=== PATIENT | female | born 1995 | race Caucasian/White ===

== ENCOUNTER 2017-11-16 23:17 | Outpatient (CLI) | payer OTHER ==
[2017-11-17] MEDS ORDERED: DEXTROSE 5%-LACTATED RINGERS 1,000 ML IV PRN (00:05)
[2017-11-17 00:32] LABS: APPEARANCE,URINE CLOUDY; BILIRUBIN,URINE NEGATIVE (NEGATIVE); COLOR,URINE AMBER; GLUCOSE, URINE NEGATIVE (NEGATIVE); KETONES,URINE 80 mg/dL (NEGATIVE); LEUKOCYTE ESTERASE,URINE LARGE (NEGATIVE); NITRITE,URINE NEGATIVE (NEGATIVE); PROTEIN,URINE 30 mg/dL (NEGATIVE); URINE SPECIFIC GRAVITY 1.024
[2017-11-17 00:39] LABS: URINE AMPHETAMINES SCREEN NEGATIVE; URINE BARBITURATES SCREEN NEGATIVE; URINE BENZODIAZEPINES SCREEN NEGATIVE; URINE COCAINE SCREEN NEGATIVE; URINE MARIJUANA (THC) SCREEN NEGATIVE; URINE METHADONE SCREEN NEGATIVE; URINE PHENCYCLIDINE SCREEN NEGATIVE
--- NOTE | 2017-11-17 01:24 | RADIOLOGY REPORT (SQ) ---
EXAM DESCRIPTION: Limited second trimester obstetrical ultrasound. CLINICAL HISTORY: 22 years Female, cervical length for contractions LMP 05/29/2017. COMPARISON: None. TECHNIQUE: Limited second trimester obstetrical ultrasound performed. FINDINGS/IMPRESSION: Single intrauterine . heart rate of 149 beats for minute. Cervical length of 3.8 cm and closed. No definite funneling identified. organ survey not performed. Continued obstetrical follow-up recommended.
== END 2017-11-17 02:54 | disposition home or self-care (01) ==
LOC: LC 23:17
PROVIDERS: ATTEND Obstetrics & Gynecology Gynecology
PROC: 4A1HXCZ Monitoring of Products of Conception, Cardiac Rate, External Approach (ICD-10-PCS; principal; 2017-11-16)
DX: O47.02 False labor before 37 completed weeks of gestation, second trimester (principal); Z3A.22 22 weeks gestation of pregnancy
CPT/HCPCS: 76815; 80307; 81001

== ENCOUNTER 2018-03-05 00:31 | Inpatient (IN) | payer OTHER ==
[2018-03-05] MEDS ORDERED: LIDOCAINE 1% INJ-PF (10 MG/ML) 30 ML SDV ONE ×2 (01:02→01:13)
[2018-03-05] MEDS ORDERED: PENICILLIN G-K 5 MILLION UNIT VIAL ONE ×3 (01:02→09:35)
[2018-03-05] MEDS ORDERED: OXYTOCIN 10 UNIT/ML VIAL ONE ×2 (01:02→01:13)
[2018-03-05] MEDS ORDERED: MISOPROSTOL 0.2 MG TABLET ONE ×2 (01:02→01:13)
[2018-03-05] MEDS ORDERED: OXYTOCIN/NORMAL SALINE 0 UNIT/0 ML RTUINJ ONE (01:02)
[2018-03-05 01:08] LABS: APPEARANCE,URINE SLIGHTLY-CLOUDY; BILIRUBIN,URINE NEGATIVE (NEGATIVE); COLOR,URINE YELLOW; GLUCOSE, URINE NEGATIVE (NEGATIVE); KETONES,URINE NEGATIVE (NEGATIVE); LEUKOCYTE ESTERASE,URINE NEGATIVE (NEGATIVE); NITRITE,URINE NEGATIVE (NEGATIVE); PROTEIN,URINE 30 mg/dL (NEGATIVE); URINE SPECIFIC GRAVITY 1.011; UROBILINOGEN,URINE NEGATIVE mg/dL (<2.0)
[2018-03-05] MEDS ORDERED: RINGERS SOLUTION,LACTATED 1,000 ML IV PRN (01:11)
[2018-03-05] MEDS ORDERED: RINGERS SOLUTION,LACTATED 1,000 ML IV ONE (01:11)
[2018-03-05] MEDS ORDERED: PENICILLIN G POTASSIUM 5,000,000 UNIT in DEXTROSE 5%-WATER 100 ML IV ONE (01:11)
[2018-03-05] MEDS ORDERED: OXYTOCIN/NORMAL SALINE 20 UNIT/1,000 ML RTUINJ ONE (01:13)
[2018-03-05 01:31] LABS: URINE AMPHETAMINES SCREEN NEGATIVE
[2018-03-05 01:38] LABS: URINE BARBITURATES SCREEN NEGATIVE; URINE BENZODIAZEPINES SCREEN NEGATIVE; URINE COCAINE SCREEN NEGATIVE; URINE MARIJUANA (THC) SCREEN NEGATIVE; URINE METHADONE SCREEN NEGATIVE; URINE PHENCYCLIDINE SCREEN NEGATIVE
[2018-03-05 01:42] LABS: ABSOLUTE BASOPHILS # (AUTO) 0.1 10^3/uL (0.0-0.2); ABSOLUTE EOSINOPHILS # (AUTO) 0.1 10^3/uL (0.0-0.6); ABSOLUTE LYMPHOCYTES (AUTO) 3.4 10^3/uL (0.5-4.7); ABSOLUTE MONOCYTES (AUTO) 0.8 10^3/uL (0.1-1.4); ABSOLUTE NEUT (AUTO) 8.2 10^3/uL (1.7-8.2); BASOPHILS % (AUTO) 0.9 % (0-2); EOSINOPHILS % (AUTO) 1.2 % (0-6); HEMATOCRIT 36.2 % (36.0-47.0); HEMOGLOBIN 12.5 g/dL (12.0-15.5); LYMPHOCYTES % (AUTO) 26.8 % (13-45); MEAN CORPUSCULAR HEMOGLOBIN 30.8 pg (27.0-33.4); MEAN CORPUSCULAR HGB CONC 34.6 g/dL (32.0-36.0); MEAN CORPUSCULAR VOLUME 89 fl (80-97); MONOCYTES % (AUTO) 6.6 % (3-13); PLATELET COUNT 164 10^3/uL (150-450); RED BLOOD COUNT 4.07 10^6/uL (3.72-5.28); RED CELL DISTRIBUTION WIDTH 13.1 % (11.5-14.0); SEGMENTED NEUTROPHILS % (AUTO) 64.5 % (42-78); TOTAL CELLS COUNTED % (AUTO) 100 %; WHITE BLOOD COUNT 12.7 10^3/uL (4.0-10.5)
[2018-03-05] MEDS ORDERED: EPHEDRINE SULFATE INJ 50 MG/1 ML AMPULE ONE (06:05)
[2018-03-05] MEDS ORDERED: FENTANYL/BUPIVACAINE/NS/PF 200 MCG/100 ML RTUINJ EPI ONE (06:06)
[2018-03-05] MEDS ORDERED: BUPIVACAINE HCL 0.5 % INJ/PF 30 ML SDV ONE (06:07)
--- NOTE | 2018-03-05 08:27 | L&D Progress Notes ---
PROGRESS NOTES Datetime Report Generated by CPN: 03/05/2018 08:15 PROGRESS NOTE Impression: Reassuring Heart Rate Plan: Continue Present Management Comment: Resting quietly, irreg uc's, Cat 1 strip, comfortable with epidural Discussed POC, consider Pitocin if contractions slow down Dr. Kendall on unit and aware of status VAGINAL EXAM Dilatation: 2 Effacement: 50 Station: -1 MEMBRANES Pooling: Positive Membranes: Ruptured FETUS A Monitoring: External US : 40.0 Presentation: Vertex SIGNATURE SIGNATURE: [id number] SIGNATURE: [id number] Assignment: Lee Kendall MD Signature: with User ID: [email or web address] : with User ID: [email or web address]
--- NOTE | 2018-03-05 08:27 | Admission Physical ---
Datetime Report Generated by CPN: 03/05/2018 04:12 CURRENT ADMISSION Chief Complaint: Uterine Contractions; Suspected Ruptured Membranes Indication for Induction: Not Applicable Admit Impression : Term, Intrauterine Admit Plan: Admit to Unit ALLERGIES Medication Allergies: Yes Medication Allergies: Sulfa (Sulfonamide Antibiotics) (03/05/2018) Latex: No Latex Allergies Food Allergies: no Environmental Allergies: no OBSTETRICAL HISTORY EDC: 03/05/2018 00:00 : 1 Para: 0 Term: 0 : 0 SAB: 0 IAB: 0 Ectopic: 0 Livin Cesareans: 0 VBACs: 0 Multiple Births: 0 Gestational Diabetes: No Rh Sensitization: No Incompetent Cervix: No NANCY: No Infertility: No ART Treatment: No Uterine Anomaly: No IUGR: No Hx Previous C/S: No Macrosomia: No Hx Loss/Stillborn: No PIH: No Hx : No Placenta Previa/Abruption: No Depression/PP Depression: No PTL/PROM: No Post Hemorrhage: No Current Procedures: Ultrasound Obstetrical History Comments: g1 - current SEE RECORDS Alcohol: No Marijuana : No Cocaine: No Other Illicit Drugs: No Cigarettes: Never Smoker. [id number] MEDICAL HISTORY Diabetes: No Blood Transfusion: No Pulmonary Disease (Asthma, TB): No Breast Disease: No Hypertension: No Emergency Telecommunications Dispatcher Surgery: No Heart Disease: No Hosp/Surgery: No Autoimmune Disorder: No Anesthetic Complications: No Kidney Disease: No Abnormal Pap Smear: No Neuro/Epilepsy: No Psychiatric Disorders: No Other Medical Diseases: No Hepatitis/Liver Disease: No Significant Family History: No Varicosities/Phlebitis: No Trauma/Violence : No Thyroid Dysfunction: No INFECTIOUS HISTORY Gonorrhea: No Genital Herpes: No Chlamydia: No Tuberculosis: No Syphilis: No Hepatitis: No HIV/AIDS Exposure: No Rash or Viral Illness: No HPV: No PHYSICAL EXAM General: Normal HEENT: Normal Neurologic: Normal Thyroid: Normal Heart: Normal Lungs: Normal Breast: Deferred Back: Normal Abdomen: Normal Genitourinary Exam: Normal Extremities: Normal DTRs: Normal Pelvic Type: Adequate Vital Signs: Reviewed VAGINAL EXAM Dilatation: 2 Effacement: 50 Station: -1 MEMBRANES Pooling: Positive Membranes: Ruptured FETUS A EGA: 40.0 Monitoring: External US FHR- Baseline: 120 Decelerations: None Presentation: Vertex Admit Comment: She will likely need pitocin. PLANS FOR LABOR AND DELIVERY Labor and Delivery: None Pain Management: Epidural Feeding Preference: Breast Benefit of Breast Feed Discussed: Yes Circumcision: Yes INFORMED CONSENT Signature: with User ID: [email or web address]
[2018-03-05] MEDS: PENICILLIN G POTASSIUM 2,500,000 UNIT in DEXTROSE 5%-WATER 50 ML IV SCH (09:45)
[2018-03-05] MEDS ORDERED: DIBUCAINE 1% OINTMENT 28 GM TP PRN (12:09)
[2018-03-05] MEDS ORDERED: PROMETHAZINE HCL INJ 25 MG/1 ML VIAL IV PRN (12:09)
[2018-03-05] MEDS ORDERED: ACETAMINOPHEN 650 MG SUPP.RECT PR PRN (12:09)
[2018-03-05] MEDS ORDERED: BENZOCAINE/MENTHOL AEROSOL SPRAY 56 ML TOP PRN (12:09)
[2018-03-05] MEDS ORDERED: ACETAMINOPHEN WITH CODEINE #3 TABLET PO PRN ×2 (12:09)
[2018-03-05] MEDS ORDERED: DIPHENHYDRAMINE HCL 25 MG CAPSULE PO PRN (12:09)
[2018-03-05] MEDS ORDERED: PROMETHAZINE HCL 25 MG SUPP.RECT PR PRN (12:09)
[2018-03-05] MEDS ORDERED: MAGNESIUM HYDROXIDE SUSP 30 ML UDCUP PO PRN (12:09)
[2018-03-05] MEDS ORDERED: GLYCERIN/WITCH HAZEL LEAF 1 EACH MED..PAD TP PRN (12:09)
[2018-03-05] MEDS ORDERED: NA PHOS,M-B/NA PHOS,DI-BA (ADULT) 133 ML ENEMA PR PRN (12:09)
[2018-03-05] MEDS ORDERED: DIPH/PERTUSS(ACELL)/TETANUS VAC/PF 0.5 ML SYR (>=10YO) IM PRN (12:09)
[2018-03-05] MEDS ORDERED: OXYTOCIN/NORMAL SALINE 20 UNIT/1,000 ML RTUINJ IV PRN (12:09)
[2018-03-05] MEDS ORDERED: MEASLES,MUMPS&RUBELLA VACC/PF 0.5 ML VIAL SUBCUT PRN (12:09)
[2018-03-05] MEDS ORDERED: PSEUDOEPHEDRINE HCL 30 MG TABLET PO PRN (12:09)
[2018-03-05] MEDS ORDERED: PROMETHAZINE HCL 25 MG TABLET PO PRN (12:09)
--- NOTE | 2018-03-05 16:04 | Delivery Summary ---
Del Sum A-C Datetime Report Generated by CPN: 03/05/2018 16:04 DELIVERY PERSONNEL DELIVERY PERSONNEL: [id number] Delivery Doctor:: Laya De Jesus CNM Nurse Life Skills Consultant Certified:: Laya De Jesus CNM Labor and Delivery Nurse:: LETICIA Alfonso Labor and Delivery Nurse:: Lisa Chavez RN Industrial Safety And Health Technician:: Lisa Chavez RN Nursery Nurse:: Cory Mireles RN Student Observers:: [email or web address] x3 Instructor Industrial Design/VERIFY REP: Deepthi Correa CNA II MATERNAL INFORMATION Delivery Anesthesia: Epidural Medications After Delivery: Pitocin Drip 20 Units/1000ml NSS Maternal Complications: None Provider Comments: viable male from OA to TRAY over ML epis and L and R labial laceration, placed on mothers abd, spont delivery of grossly nl intact placenta, 3 VC, cord clamped afte 2 minutes and cut by FOB. Epis repaired with 2-0 chromic without difficulty, labial and periurethral sutured. catheter placed to insure patency after suturing. FFFM. baby and mom remain in recovery in stable condition LABOR SUMMARY EDC: 03/05/2018 00:00 No. Babies in Womb: 1 Attempted: No Labor Anesthesia: Epidural LABOR INFORMATION Reason for Induction: Not Applicable Onset of Labor: 03/05/2018 05:54 Complete Dilatation: 03/05/2018 08:30 Oxytocin: Augmentation Group B Beta Strep: Positive Antibiotics # of Doses: 3 Antibiotics Time of Last Dose: 929 Name of Antibiotic Given: peniciilin Steroids Given: None Reason Steroids Not Administered: Not Applicable MEMBRANES Membranes Rupture Method: Spontaneous Rupture of Membranes: 03/04/2018 23:30 Length of Rupture (hr): 12.08 Amniotic Fluid Color: Clear Amniotic Fluid Amount: Large Amniotic Fluid Odor: Normal STAGES OF LABOR Stage 1 hr: 2 Stage 1 min: 36 Stage 2 hr: 3 Stage 2 min: 5 Stage 3 hr: 0 Stage 3 min: 2 Total Time in Labor hr: 5 Total Time in Labor min: 43 VAGINAL DELIVERY Episiotomy: Median Laceration #1: None Laceration Extension #1: First Degree Other Laceration: left and right labial Laceration Repair: Yes Laceration Repair Note: reapired with 2-0 chromic Sponge Count Correct: N/A BABY A INFORMATION Infant Delivery Date/Time: 03/05/2018 11:35 Method of Delivery: Vaginal Born in Route : No : N/A Forceps: N/A Vacuum Extraction: N/A Shoulder Dystocia : No PRESENTATION/POSITION BABY A Presentation: Cephalic Cephalic Presentation: Vertex Vertex Position: Left Occipital Anterior Breech Presentation: N/A PLACENTA INFORMATION BABY A Placenta Delivery Time : 03/05/2018 11:37 Placenta Method of Delivery: Spontaneous Placenta Status: Delivered SCORES BABY A Heart Rate 1 min: >100 bpm Resp Effort 1 min: Good Cry Reflex Irritability 1 min: Cough or Sneeze or Pulls Away Muscle Tone 1 min: Active Motion Color 1 min: Blue/Pale Resuscitation Effort 1 min: Tactile Stimulation SCORE 1 MIN: 8 Heart Rate 5 min: >100 bpm Resp Effort 5 min: Good Cry Reflex Irritability 5 min: Cough or Sneeze or Pulls Away Muscle Tone 5 min: Active Motion Color 5 min: Body [place], Extremities Blue Resuscitation Effort 5 min: Tactile Stimulation SCORE 5 MIN: 9 INFANT INFORMATION BABY A Gestational Age at Delivery: 40.0 Gestational Status: Full Term- 39- 40.6 Weeks Infant Outcome : Liveborn Infant Condition : Stable Sex: Male IDENTIFICATION BABY A Verification Date/Time: 03/05/2018 12:04 ID Band Number: [id number] Mother's Name Verified: Yes RN Verifying : R [place] RN/D Bellavance RN WEIGHT/LENGTH BABY A Birthweight (gm): 3650 Weight (lb): 8 Infant Weight (oz): 1 Infant Length (in): 20.50 Infant Length (cm): 52.07 CORD INFORMATION BABY A No. Cord Vessels: 3 Nuchal Cord : N/A Cord Blood Taken: Yes-For Eval (Mom's Blood Type - or O+) Suction: Mouth; Nose ASSESSMENT BABY A Infant Complications: None Physical Findings at Delivery: Molding of the Head Respirations: Appears Normal Skin to Skin: Yes Major Assembler/ALS Called : No Care By: D Bellavance RN Transferred To: Remains with Mother BABY B INFORMATION : N/A
--- NOTE | 2018-03-05 16:10 | Warning Signs in Babies ---
VOD Warning Signs Datetime Report Generated by [facility]: 03/05/2018 16:10 VOD#[id number] -Warning Signs in Babies: Needs to be viewed. (11/16/2017 23:37:Lisa Chavez RN)
[2018-03-05] MEDS: IBUPROFEN 800 MG TABLET PO SCH ×2 (16:31→22:39)
[2018-03-05] MEDS: DOCUSATE SODIUM 100 MG CAPSULE PO SCH (17:54)
[2018-03-05] MEDS: FERROUS SULFATE 325 MG TABLET PO SCH (17:54)
[2018-03-05] MEDS ORDERED: FAMOTIDINE 20 MG TABLET PO SCH (22:00)
[2018-03-06] MEDS: IBUPROFEN 800 MG TABLET PO SCH ×3 (05:57→22:00)
[2018-03-06 08:06] LABS: HEMATOCRIT 30.4 % (36.0-47.0); HEMOGLOBIN 10.5 g/dL (12.0-15.5); MEAN CORPUSCULAR HEMOGLOBIN 31.1 pg (27.0-33.4); MEAN CORPUSCULAR HGB CONC 34.5 g/dL (32.0-36.0); MEAN CORPUSCULAR VOLUME 90 fl (80-97); PLATELET COUNT 123 10^3/uL (150-450); RED BLOOD COUNT 3.37 10^6/uL (3.72-5.28); RED CELL DISTRIBUTION WIDTH 13.3 % (11.5-14.0); WHITE BLOOD COUNT 11.1 10^3/uL (4.0-10.5)
[2018-03-06] MEDS ORDERED: SENNOSIDES/DOCUSATE 8.6-50 MG 1 EACH TABLET PO SCH (10:00)
[2018-03-06] MEDS: FERROUS SULFATE 325 MG TABLET PO SCH ×2 (11:04→18:38)
[2018-03-06] MEDS: DOCUSATE SODIUM 100 MG CAPSULE PO SCH ×2 (11:05→18:38)
[2018-03-06] MEDS: PRENATAL VITAMIN W DHA CAPSULE PO SCH (11:05)
--- NOTE | 2018-03-06 15:14 | PDOC PROGRESS REPORT ---
Subjective-OB Progress Note for:: 03/06/18 Subjective: 22yo s/p vaginal delivery ppd1. Ambulating, voiding and without difficulty. Denies any concerns at this time. Physical Exam (OB) Vital Signs: Temp Pulse Resp BP Pulse Ox 97.7 F 67 20 139/72 H 97 03/06/18 07:40 03/06/18 07:40 03/06/18 07:40 03/06/18 07:40 03/06/18 07:40 Intake & Output 03/05/18 03/06/18 03/07/18 06:59 06:59 06:59 Intake Total 400 Balance 400 Weight 100 kg - General General Appearance: Appears well In distress: None - PIH/Pre-Eclampsia Clonus: Negative Headache: Absent Epigastric Pain: No Visual Changes: No - Episiotomy/Laceration Site Condition: Well Approximated - Lochia Lochia Amount: Small 10-25 ml Lochia Color: Rubra/Red - Abdomen Description: Soft, Round Hernia Present: No Fundal Description: Firm, Midline Fundal Height: u/u - u/2 - Respiratory Respiratory Status: No respiratory distress - Extremities Upper extremity: Normal inspection Lower extremities: Edema - Neurological Cognition: Normal Orientation: AAOx4 - Psychological Associated symptoms: Normal affect, Normal mood Objective-Diagnostic Laboratory: 03/06/18 07:51 03/06/18 07:51 WBC 11.1 H RBC 3.37 L Hgb 10.5 L Hct 30.4 L MCV 90 MCH 31.1 MCHC 34.5 RDW 13.3 Plt Count 123 L Assessment and Plan(PN) - Assessment and Plan (1) Acute blood loss anemia Is this a current diagnosis for this admission?: Yes Plan: Increase dietary iron and feso4 bid. Continue to monitor for decompensation. (2) Obstetric vaginal laceration, delivered, current hospitalization Is this a current diagnosis for this admission?: Yes Plan: Routine pp care, monitor for s/s of infection (3) Obstetric labial laceration, delivered, current hospitalization Is this a current diagnosis for this admission?: Yes Plan: Routine pp care.monitor for s/s of infection - Time Spent with Patient Time with patient: Less than 15 minutes Medications reviewed and adjusted accordingly: Yes - Disposition Anticipated Discharge: Home Within: within 24 hours
[2018-03-06 20:26] VITALS: BP 137/80
[2018-03-06] MEDS: PENICILLIN G POTASSIUM 2,500,000 UNIT in DEXTROSE 5%-WATER 50 ML IV SCH (20:50)
[2018-03-07] MEDS: IBUPROFEN 800 MG TABLET PO SCH ×2 (05:55→14:02)
[2018-03-07 07:13] LABS: HEMATOCRIT 28.6 % (36.0-47.0); HEMOGLOBIN 10.1 g/dL (12.0-15.5); MEAN CORPUSCULAR HEMOGLOBIN 31.9 pg (27.0-33.4); MEAN CORPUSCULAR HGB CONC 35.2 g/dL (32.0-36.0); MEAN CORPUSCULAR VOLUME 91 fl (80-97); PLATELET COUNT 126 10^3/uL (150-450); RED BLOOD COUNT 3.15 10^6/uL (3.72-5.28); RED CELL DISTRIBUTION WIDTH 13.4 % (11.5-14.0); WHITE BLOOD COUNT 10.2 10^3/uL (4.0-10.5)
--- NOTE | 2018-03-07 08:55 | PDOC DISCHARGE SUMMARY ---
Final Diagnosis Discharge Date: 03/07/18 - Final Diagnosis (1) Acute blood loss anemia Is this a current diagnosis for this admission?: Yes (2) Delivery normal Is this a current diagnosis for this admission?: Yes (3) Obstetric labial laceration, delivered, current hospitalization Is this a current diagnosis for this admission?: Yes (4) Obstetric vaginal laceration, delivered, current hospitalization Is this a current diagnosis for this admission?: Yes Discharge Data - Discharge Medication Home Medications: Vit,Calc76/Iron/Folic [Prenatabs Rx Tablet] 1 each PO DAILY 11/16/17 Reason(s) for Admission: PROM Procedures: NST, Management of Obstetric Complications Intrapartum Procedure(s): Spontaneous Vaginal Delivery Complication(s): Laceration-Labial, Laceration-Periurethral, Episiotomy Laceration-Degree: 1st - Diagnosis Test Laboratory: Temp Pulse Resp BP Pulse Ox 98.0 F 86 18 137/80 H 97 03/06/18 20:19 03/06/18 20:19 03/06/18 20:19 03/06/18 20:19 03/06/18 20:19 03/05/18 03/05/18 03/06/18 00:44 01:25 07:51 RBC 4.07 3.37 L Hgb 12.5 10.5 L Hct 36.2 30.4 L Urine Opiates Screen NEGATIVE 03/07/18 05:42 RBC 3.15 L Hgb 10.1 L Hct 28.6 L Urine Opiates Screen - Discharge information/Instructions Discharge Activity: Balance Activity w/Rest, Pelvic Rest Discharge Diet: Regular Disposition: HOME, SELF-CARE Follow up with: [facility] in: 3, Weeks
[2018-03-07] MEDS: FERROUS SULFATE 325 MG TABLET PO SCH (11:22)
[2018-03-07] MEDS: PRENATAL VITAMIN W DHA CAPSULE PO SCH (11:22)
[2018-03-07] MEDS: DOCUSATE SODIUM 100 MG CAPSULE PO SCH (11:23)
== END 2018-03-07 13:50 | disposition home or self-care (01) | DRG 775 ==
LOC: LC 00:31 → LR 01:05 → 2S 16:20
PROVIDERS: ADMIT Obstetrics & Gynecology; ATTEND Obstetrics & Gynecology
PROC: 10E0XZZ Delivery of Products of Conception, External Approach (ICD-10-PCS; principal; 2018-03-05)
PROC: 0HQ9XZZ Repair Perineum Skin, External Approach (ICD-10-PCS; 2018-03-05)
PROC: 0W8NXZZ Division of Female Perineum, External Approach (ICD-10-PCS; 2018-03-05)
DX: O70.0 First degree perineal laceration during delivery (principal); D62 Acute posthemorrhagic anemia; Z37.0 Single live birth; Z3A.40 40 weeks gestation of pregnancy; O99.02 Anemia complicating childbirth; O71.82 Other specified trauma to perineum and vulva; O99.824 Streptococcus B carrier state complicating childbirth; Z88.2 Allergy status to sulfonamides
CPT/HCPCS: 36415; 80307; 81005; 84112; 85025; 85027; 86592; 86850; 86900; 86901; 94760; J2540; J2590; J3490

== ENCOUNTER 2018-08-28 15:32 | Emergency (ER) | payer OTHER ==
[2018-08-28 15:50] VITALS: BP 122/87
--- NOTE | 2018-08-28 17:16 | ER Document Report ---
HPI - HPI Time Seen by Provider: 08/28/18 17:06 Pain Level: 4 Context: Patient is a 23-year-old female who presents to the emergency department with a chief complaint of sinus pain. She states that the pain is in her right frontal and right maxillary sinuses. She states there is a fullness and admits to having some sloshing feeling in her sinus area. She is also feeling some ear pain on the right side due to the sinus infection. She has not seen her primary care doctor in regards to this issue. She does feel like she is having some aches. She does report having a fever, and she took some Tylenol this morning to help with her symptoms. No other past medical history. She is currently breast-feeding. - CONSTITUTIONAL Constitutional: REPORTS: Fever. DENIES: Chills - EENT EENT: REPORTS: Sore Throat, Nasal Drainage-Purulent, Congestion - NEURO Neurology: REPORTS: Headache - CARDIOVASCULAR Cardiovascular: DENIES: Chest pain - RESPIRATORY Respiratory: REPORTS: Coughing. DENIES: Trouble Breathing - GASTROINTESTINAL Gastrointestinal: REPORTS: Abdominal Pain - REPRODUCTIVE Reproductive: DENIES: : - DERM Skin Color: Normal Skin Problems: None Past Medical History - Social History Smoking Status: Never Smoker Family History: Reviewed & Not Pertinent Patient has suicidal ideation: No Patient has homicidal ideation: No Renal/ Medical History: Denies: Hx Peritoneal Dialysis Vertical Provider Document - CONSTITUTIONAL Agree With Documented VS: Yes Exam Limitations: No Limitations General Appearance: No Apparent Distress - INFECTION CONTROL TRAVEL OUTSIDE OF THE [place] IN LAST 30 DAYS: No - HEENT HEENT: Atraumatic, Normocephalic, PERRLA, Pharyngeal Tenderness, Pharyngeal Erythema. negative: Pharyngeal Exudate, Tympanic Membrane Red, Tympanic Membrane Bulging Notes: Tenderness noted to right maxillary and frontal sinuses - NECK Neck: Normal Inspection, Supple - RESPIRATORY Respiratory: Breath Sounds Normal, No Respiratory Distress - CARDIOVASCULAR Cardiovascular: Regular Rate, Regular Rhythm Pulses: Normal: Radial - GI/ABDOMEN Gastrointestinal: Abdomen Soft - REPRODUCTIVE Female Genitalia: Normal Inspection - MUSCULOSKELETAL/EXTREMETIES Musculoskeletal/Extremeties: FROM - NEURO Level of Consciousness: Awake, Alert, Appropriate Motor/Sensory: No Motor Deficit, No Sensory Deficit - DERM Integumentary: Warm, Dry, No Rash Course - Re-evaluation Re-evalutation: 08/28/18 17:16 Patient's physical exam is consistent with acute sinusitis. She will be given amoxicillin. I do not suspect patient has pneumonia. I do not suspect patient has any airway abnormalities, Eliel's angina, or peritonsillar abscess. Verbal discharge instructions were given to the patient. They verbalized understanding. They are stable for discharge. - Vital Signs Vital signs: Temp Pulse Resp BP Pulse Ox 99.8 F 101 H 16 122/87 H 100 08/28/18 15:49 08/28/18 15:49 08/28/18 15:49 08/28/18 15:49 08/28/18 15:49 Discharge - Discharge Clinical Impression: Acute sinusitis Qualifiers: Sinusitis location: pansinusitis Recurrence: recurrent Qualified Code(s): J01.41 - Acute recurrent pansinusitis Condition: Stable Disposition: HOME, SELF-CARE Additional Instructions: You are seen in the emergency department for sinus pain. Your symptoms are consistent with a sinus infection. You have been given antibiotics. Take all your antibiotics as prescribed. Follow-up with your primary care doctor in regards to this visit. You have been referred to an ear, nose, and throat doctor. Follow-up if you continue to have symptoms or recurrent sinus infections. Prescriptions: Amox Tr/Potassium Clavulanate [Augmentin 875-125 Tablet] 1 tab PO BID 10 Days #20 tablet Referrals: JOB ALFONSO DO [ASSOCIATE] - Follow up as needed
== END 2018-08-28 17:24 | disposition home or self-care (01) ==
LOC: ER 15:32
DX: J01.41 Acute recurrent pansinusitis (principal); R51 Headache; H92.01 Otalgia, right ear; R50.9 Fever, unspecified; R05 Cough; R10.9 Unspecified abdominal pain; J02.9 Acute pharyngitis, unspecified; R09.89 Other specified symptoms and signs involving the circulatory and respiratory systems
CPT/HCPCS: 99283

== ENCOUNTER 2019-05-04 00:25 | Observation (INO) | payer OTHER ==
[2019-05-04 03:24] LABS: APPEARANCE,URINE SLIGHTLY-CLOUDY; BILIRUBIN,URINE NEGATIVE (NEGATIVE); COLOR,URINE YELLOW; GLUCOSE, URINE NEGATIVE (NEGATIVE); KETONES,URINE NEGATIVE (NEGATIVE); LEUKOCYTE ESTERASE,URINE MODERATE (NEGATIVE); NITRITE,URINE NEGATIVE (NEGATIVE); PROTEIN,URINE NEGATIVE (NEGATIVE); URINE SPECIFIC GRAVITY 1.014; UROBILINOGEN,URINE NEGATIVE mg/dL (<2.0)
[2019-05-04] MEDS ORDERED: MORPHINE SULFATE 10 MG/ML INJ IV ONE (03:28)
[2019-05-04] MEDS ORDERED: NORMAL SALINE 1000 ML 1,000 ML IV ONE (03:29)
[2019-05-04 03:38] LABS: ABSOLUTE EOSINOPHILS # (AUTO) 0.2 10^3/uL (0.0-0.6); ABSOLUTE LYMPHOCYTES (AUTO) 2.9 10^3/uL (0.5-4.7); ABSOLUTE MONOCYTES (AUTO) 0.5 10^3/uL (0.1-1.4); ABSOLUTE NEUT (AUTO) 4.9 10^3/uL (1.7-8.2); BASOPHILS % (AUTO) 0.4 % (0-2); EOSINOPHILS % (AUTO) 1.8 % (0-6); HEMATOCRIT 39.3 % (36.0-47.0); HEMOGLOBIN 13.6 g/dL (12.0-15.5); LYMPHOCYTES % (AUTO) 34.3 % (13-45); MEAN CORPUSCULAR HEMOGLOBIN 30.1 pg (27.0-33.4); MEAN CORPUSCULAR HGB CONC 34.7 g/dL (32.0-36.0); MEAN CORPUSCULAR VOLUME 87 fl (80-97); PLATELET COUNT 181 10^3/uL (150-450); RED BLOOD COUNT 4.53 10^6/uL (3.72-5.28); RED CELL DISTRIBUTION WIDTH 13.2 % (11.5-14.0); SEGMENTED NEUTROPHILS % (AUTO) 57.5 % (42-78); TOTAL CELLS COUNTED % (AUTO) 100 %; WHITE BLOOD COUNT 8.6 10^3/uL (4.0-10.5)
--- NOTE | 2019-05-04 03:39 | ER Document Report ---
ED General - General Chief Complaint: Abdominal Pain Stated Complaint: ABDOMINAL PAIN Time Seen by Provider: 05/04/19 03:07 Notes: Patient is a 23-year-old female who presents the emergency department with a chief complaint of right upper quadrant abdominal pain. Patient has had her symptoms on and off for the past 2 weeks. Today she felt like the pain was worse. She states it is an intermittent pain. She also states that it is a stabbing pain. Patient denies any fever, body aches, chills. She states that she has some nausea, but has not vomited. Denies any diarrhea. Denies dysuria. TRAVEL OUTSIDE OF THE [place] IN LAST 30 DAYS: No - Related Data Allergies/Adverse Reactions: Sulfa (Sulfonamide Antibiotics) Allergy (Verified 03/05/18 00:42) Past Medical History - Social History Smoking Status: Never Smoker Family History: Reviewed & Not Pertinent Patient has suicidal ideation: No Patient has homicidal ideation: No Renal/ Medical History: Denies: Hx Peritoneal Dialysis Review of Systems - Review of Systems Notes: REVIEW OF SYSTEMS: CONSTITUTIONAL : Denies recent illness. Denies recent unintentional weight loss. Denies fever, chills, or sweats. EENT: Denies eye, ear, throat, or mouth pain, discharge, or symptoms. Denies nasal or sinus congestion. CARDIOVASCULAR: Denies chest pain. RESPIRATORY: Denies shortness of breath, cough, congestion, difficulty breathing, or wheezing. GASTROINTESTINAL: See HPI. GENITOURINARY: Denies difficulty urinating, burning, blood in urine, urgency or frequency. MUSCULOSKELETAL: See HPI. Denies joint pain or swelling. SKIN: Denies rash, itchiness, or lesions HEMATOLOGIC : Denies easy bruising or bleeding. LYMPHATIC: Denies swollen, painful, enlarged glands. NEUROLOGICAL: Denies no numbness or tingling denies weakness. Denies headache. Denies altered mental status. Denies alteration in speech. PSYCHIATRIC: Denies stress, anxiety, alteration in sleep patterns, or depression. All other systems reviewed and negative. Physical Exam - Vital signs Vitals: Temp Pulse Resp BP Pulse Ox 98.1 F 74 16 135/73 H 100 05/04/19 02:50 05/04/19 02:50 05/04/19 02:50 05/04/19 02:50 05/04/19 02:50 - Notes Notes: PHYSICAL EXAMINATION: GENERAL: Appears well, healthy, well-nourished, no acute distress. HEAD: Normocephalic, atraumatic. EYES: PERRL, conjunctiva normal, all extraocular movements intact, sclera nonicteric ENT: Moist mucous membranes. NECK: Supple, no noticeable swelling, redness, rash. Normal range of motion. LUNGS: Equal breath sounds bilaterally and clear to auscultation. No wheezes rales or rhonchi. CARDIOVASCULAR: S1-S2, regular rate, regular rhythm. Radial pulses 2+, normal. ABDOMEN: Normoactive bowel sounds. Soft, very tender right upper quadrant, positive Caruso sign, no guarding, no rebound tenderness, and no masses palpated. EXTREMITIES: Normal strength and range of motion, no pitting or edema. No cyanosis. NEUROLOGICAL: Moves all extremities upon command. Strength 5/5 in all e xtremities. PSYCH: Normal mood, normal affect. SKIN: Warm, dry. No rash, lesions, ulcerations noted. Normal skin turgor. Course - Re-evaluation Re-evalutation: 05/04/19 06:36 Patient's hematology is unremarkable. Chemistries are also unremarkable. Lipase is normal. Urinalysis shows a moderate amount of leukocytes in her ur ine. Her right upper quadrant ultrasound shows gallbladder sludge with cholelithiasis with no evidence of cholecystitis. She also has right-sided hydronephrosis with stones noted. There is no definite comment of where the stones are, patient will be sent for a CT of the abdomen pelvis without contrast to accurately define where her stones are. 05/04/19 08:[address] Becker and he will admit the patient to the surgical floor. - Vital Signs Vital signs: Temp Pulse Resp BP Pulse Ox 98.1 F 71 16 113/58 L 100 05/04/19 02:50 05/04/19 05:53 05/04/19 05:53 05/04/19 05:53 05/04/19 05:53 - Laboratory Result Diagrams: 05/04/19 03:00 05/04/19 03:00 Laboratory results interpreted by me: 05/04/19 02:47 Ur Leukocyte Esterase MODERATE H Discharge - Discharge Clinical Impression: Sludge in gallbladder Abdominal pain Qualifiers: Abdominal location: right upper quadrant Qualified Code(s): R10.11 - Right upper quadrant pain Condition: Stable Disposition: ADMITTED INPATIENT Admitting Provider: Surgicalist Unit Admitted: Surgical Floor
[2019-05-04] MEDS ORDERED: ONDANSETRON HCL INJ/PF 4 MG/2 ML SDV IV ONE (03:47)
[2019-05-04 03:59] LABS: ALBUMIN 4.6 g/dL (3.5-5.0); ALKALINE PHOSPHATASE 68 U/L (38-126); ANION GAP 10 (5-19); ASPARTATE AMINO TRANSFERASE 18 U/L (14-36); BILIRUBIN,DIRECT 0.1 mg/dL (0.0-0.4); BILIRUBIN,TOTAL 0.4 mg/dL (0.2-1.3); BLOOD UREA NITROGEN 19 mg/dL (7-20); CARBON DIOXIDE 25 mmol/L (22-30); CHLORIDE 105 mmol/L (98-107); GLUCOSE 82 mg/dL (75-110); POTASSIUM 4.2 mmol/L (3.6-5.0); TOTAL PROTEIN 7.6 g/dL (6.3-8.2)
--- NOTE | 2019-05-04 05:33 | RADIOLOGY REPORT (SQ) ---
EXAM DESCRIPTION: US ABDOMEN COMPLETED DATE/TME: 05/04/2019 03:27 CLINICAL HISTORY: 23 years, Female, RUQ pain COMPARISON: None. TECHNIQUE: Grayscale and color images of the abdomen. LIMITATIONS: None. FINDINGS: The visualized portions of the pancreas, abdominal aorta and IVC appear unremarkable. The liver is normal in size, shape, and echotexture. The liver measures 13.6 cm. The main portal vein is patent and demonstrates normal hepatopedal flow. Gallbladder sludge with multiple stones is noted. There is no evidence of wall thickening or pericholecystic fluid. No sonographic Caruso sign was elicited. The common bile duct is normal in caliber measuring up to 5 mm in diameter. There is no ascites. The right kidney measures 11.0 x 4.5 cm. There is mild hydronephrosis. Multiple shadowing echogenic foci are noted within the right kidney which measure up to 1.1 cm in size. The left kidney measures 10.0 x 5.7 cm. There is no hydronephrosis. The spleen appears unremarkable and measures 11.6 x 10.0 x 4.5 cm. Visualized portions of the urinary bladder appear unremarkable. IMPRESSION: Gallbladder sludge with cholelithiasis with no evidence of acute cholecystitis. Mild right-sided hydronephrosis with multiple stones noted. copyright 2010 [employer]- All Rights Reserved
[2019-05-04] MEDS: PIPERACILLIN/TAZOBACTAM 3.375 GM VIAL IV ONE ×2 (07:16→08:04)
--- NOTE | 2019-05-04 07:59 | RADIOLOGY REPORT (SQ) ---
EXAM DESCRIPTION: CT ABDOMEN PELVIS WITHOUT IV CONTRAST COMPLETED DATE/TME: 05/04/2019 06:26 CLINICAL HISTORY: 23 years, Female, RUQ PAIN. COMPARISON: Ultrasound done on the same date TECHNIQUE: Axial CT images of the abdomen and pelvis were obtained without contrast. Sagittal and coronal reformats were performed. DLP 279 Images stored on PACS. All CT scanners at this facility use dose modulation, iterative reconstruction, and/or weight based dosing when appropriate to reduce radiation dose to as low as reasonably achievable (ALARA). [facility]: Dose Right [facility]: CareDose [facility]: Dose Right [facility]: Teradose 4D [facility]: YourNextLeap LIMITATIONS: None. FINDINGS: The lung bases are clear. The gallbladder is distended with calcifications along its wall with multiple gallstones. No definite pericholecystic Laboratory changes or pericholecystic fluid. The liver, pancreas, spleen, and adrenal glands appear unremarkable. No evidence of urolithiasis or hydronephrosis bilaterally. There is no intraperitoneal free air or fluid. There is no lymphadenopathy. The stomach and small bowel appear unremarkable. The appendix is not uniquely identified, however there are no pericecal inflammatory changes. The colon contains a moderate amount of stool. The urinary bladder, uterus, and adnexa appear unremarkable. There are no lytic or blastic bone lesions. IMPRESSION: Distended porcelain gallbladder containing multiple stones. No definite pericholecystic inflammatory changes or pericholecystic fluid. No evidence of urolithiasis or hydronephrosis. TECHNICAL DOCUMENTATION: Quality ID # [id number]: Final reports with documentation of one or more dose reduction techniques (e.g., Automated exposure control, adjustment of the mA and/or kV according to patient size, use of iterative reconstruction technique) copyright 2010 [employer]- All Rights Reserved
[2019-05-04] MEDS ORDERED: DEXTROSE 40% GEL 15 GM TUBE PO PRN ×2 (09:16)
[2019-05-04] MEDS ORDERED: DEXTROSE 50%-WATER 25 GM/50 ML DISP.SYRIN IV PRN ×2 (09:16)
[2019-05-04] MEDS ORDERED: DEXTROSE 5%-LACTATED RINGERS 1,000 ML IV PRN (09:16)
[2019-05-04] MEDS ORDERED: ONDANSETRON HCL INJ/PF 4 MG/2 ML SDV IV PRN (09:16)
[2019-05-04] MEDS ORDERED: GLUCAGON,HUMAN RECOMB 1 MG INJ SUBCUT PRN (09:16)
[2019-05-04] MEDS ORDERED: MORPHINE SULFATE 10 MG/ML INJ IV PRN ×3 (09:16→19:30)
--- NOTE | 2019-05-04 09:16 | PDOC H&P ---
History of Present Illness Admission Date/PCP: 05/04/19 08:33 Patient complains of: Right upper quadrant pains History of Present Illness: TONI BRIONES is a 23 year old female who has been complaining of off and on right upper quadrant pains usually at night. Last night she woke up with severe pains in the right upper quadrant with nausea and went to ED. She had an ultrasound of the gallbladder which showed sludge and right kidney stones. Subsequent CT scan of the abdomen revealed gallstones but no pericholecystic findings. Her white count is normal and her LFTs and lipase are all normal. She just had morphine in the ED but is still has some mild pains and tenderness in the right upper quadrant. Denies any fever no chills nor vomiting. She is not sure if she has fatty food intolerance since she tries to avoid fatty foods. She did have some spaghetti with sauce for dinner last night. Past Medical History Medical History: None Past Surgical History Past Surgical History: Reports: None Social History Smoking Status: Never Smoker Frequency of Alcohol Use: Occasional Hx Recreational Drug Use: No Family History Family History: Reviewed & Not Pertinent Parental Family History Reviewed: Yes - Mother has gallbladder problems and grandmother had cholecystectomy done Children Family History Reviewed: No Sibling(s) Family History Reviewed.: No Medication/Allergy Allergies/Adverse Reactions: Sulfa (Sulfonamide Antibiotics) Allergy (Verified 03/05/18 00:42) Review of Systems Constitutional: PRESENT: as per HPI Cardiovascular: PRESENT: other - No chest pains nor cough Gastrointestinal: PRESENT: abdominal pain, nausea Genitourinary: PRESENT: other - No dysuria Musculoskeletal: PRESENT: back pain - Referred back pains from right upper quadrant pains Physical Exam Vital Signs: Temp Pulse Resp BP Pulse Ox 98.1 F 71 16 113/58 L 100 05/04/19 02:50 05/04/19 05:53 05/04/19 05:53 05/04/19 05:53 05/04/19 05:53 Intake & Output 05/03/19 05/04/19 05/05/19 06:59 06:59 06:59 Intake Total 1000 Balance 1000 Weight 66.7 kg General appearance: PRESENT: mild distress Head exam: PRESENT: atraumatic Eye exam: PRESENT: conjunctiva pink Mouth exam: PRESENT: moist Neck exam: PRESENT: full ROM Respiratory exam: PRESENT: clear to auscultation florinda Cardiovascular exam: PRESENT: RRR Pulses: PRESENT: normal radial pulses Vascular exam: PRESENT: normal capillary refill GI/Abdominal exam: PRESENT: soft, tenderness - Right upper quadrant Rectal exam: PRESENT: deferred Musculoskeletal exam: PRESENT: ambulatory Neurological exam: PRESENT: alert, awake, oriented to person, oriented to place, oriented to time, oriented to situation Psychiatric exam: PRESENT: appropriate affect Skin exam: PRESENT: normal color, warm Results Laboratory Results: 05/04/19 03:00 05/04/19 03:00 05/04/19 05/04/19 05/04/19 02:47 03:00 03:00 WBC 8.6 RBC 4.53 Hgb 13.6 Hct 39.3 MCV 87 MCH 30.1 MCHC 34.7 RDW 13.2 Plt Count 181 Seg Neutrophils % 57.5 Sodium 139.6 Potassium 4.2 Chloride 105 Carbon Dioxide 25 Anion Gap 10 BUN 19 Creatinine 0.95 Est GFR ( Amer) > 60 Glucose 82 Calcium 10.0 Total Bilirubin 0.4 AST 18 Alkaline Phosphatase 68 Total Protein 7.6 Albumin 4.6 Lipase 144.2 Urine Color YELLOW Urine Appearance SLIGHTLY-CLOUDY Urine pH 7.0 Ur Specific Lapel 1.014 Urine Protein NEGATIVE Urine Glucose (UA) NEGATIVE Urine Ketones NEGATIVE Urine Blood NEGATIVE Urine Nitrite NEGATIVE Ur Leukocyte Esterase MODERATE H Urine WBC (Auto) 5 Urine RBC (Auto) 1 Impressions: Abdomen Ultrasound 05/04/19 03:27 IMPRESSION: Gallbladder sludge with cholelithiasis with no evidence of acute cholecystitis. Mild right-sided hydronephrosis with multiple stones noted. copyright 2010 [employer]- All Rights Reserved Abdomen/Pelvis CT 05/04/19 06:26 IMPRESSION: Distended porcelain gallbladder containing multiple stones. No definite pericholecystic inflammatory changes or pericholecystic fluid. No evidence of urolithiasis or hydronephrosis. TECHNICAL DOCUMENTATION: Quality ID # 436: Final reports with documentation of one or more dose reduction techniques (e.g., Automated exposure control, adjustment of the mA and/or kV according to patient size, use of iterative reconstruction technique) copyright 2011 [employer]- All Rights Reserved Assessment & Plan - Diagnosis (1) Abdominal pain Qualifiers: Abdominal location: right upper quadrant Qualified Code(s): R10.11 - Right upper quadrant pain Is this a current diagnosis for this admission?: Yes (2) Sludge in gallbladder Is this a current diagnosis for this admission?: Yes - Time Time Spent: 30 to 50 Minutes - Inpatient Certification Medical Necessity: Need For IV Fluids, Need for Pain Control, Need for IV Antibiotics, Need for Surgery - Plan Summary Plan Summary: 23-year-old female with right upper quadrant pains off and on for 2 weeks. Pains worse last night associated with nausea. She had an ultrasound which showed sludge in the gallbladder with no pericholecystic fluid. Also showed right kidney stones. Subsequent CT scan of the abdomen revealed stones in the gallbladder but no pericholecystic findings. No kidney stones noted. Denies fever nor chills. She is tender in the right upper quadrant. Impression: Acute cholecystitis, cholelithiasis Plans: Keep n.p.o. and hydrate. Seizure for laparoscopic cholecystectomy and need for it was explained to the patient and . Patient would like to think about it before she finally gives her permission To start her on IV antibiotics
[2019-05-04] MEDS ORDERED: PIPERACILLIN/TAZOBACTAM 3.375 GM VIAL IV SCH (09:30)
[2019-05-04] MEDS ORDERED: ONDANSETRON HCL INJ/PF 4 MG/2 ML SDV ONE (11:53)
[2019-05-04] MEDS ORDERED: NEOSTIGMINE METHYLSULFATE 10 MG/10 ML VIAL ONE (11:53)
[2019-05-04] MEDS ORDERED: ROCURONIUM BROMIDE INJ 50 MG/5 ML VIAL IV ONE (11:53)
[2019-05-04] MEDS ORDERED: GLYCOPYRROLATE 1 MG/5 ML VIAL ONE (11:53)
[2019-05-04] MEDS ORDERED: KETOROLAC TROMETHAMINE 60 MG/2 ML SDV ONE (11:53)
[2019-05-04] MEDS: PIPERACILLIN SODIUM/TAZOBACTAM 3.375 GM in NORMAL SALINE 100 ML IV SCH ×3 (12:40→23:30)
[2019-05-04] MEDS ORDERED: LIDOCAINE 1%/EPINEPHRINE INJ 20 ML VIAL ONE (15:40)
[2019-05-04] MEDS ORDERED: PROPOFOL INJ 200 MG/20 ML VIAL IV ONE (16:31)
[2019-05-04] MEDS ORDERED: MIDAZOLAM 2 MG/2 ML INJ ONE (16:31)
[2019-05-04] MEDS ORDERED: FENTANYL CITRATE INJ/PF 250 MCG/5 ML AMPULE ONE (16:31)
[2019-05-04] MEDS ORDERED: DIPHENHYDRAMINE HCL 50 MG/ML VIAL IV PRN (17:28)
[2019-05-04] MEDS ORDERED: PROMETHAZINE HCL INJ 25 MG/1 ML VIAL IV PRN (17:28)
[2019-05-04] MEDS ORDERED: MEPERIDINE HCL/PF INJ 25 MG/1 ML DISP.SYRIN IV PRN (17:28)
[2019-05-04] MEDS ORDERED: FENTANYL CITRATE INJ/PF 100 MCG/2 ML AMPUL IV PRN ×3 (17:28)
--- NOTE | 2019-05-04 18:55 | Operative Report ---
Operative Report DATE OF SURGERY: 05/04/19 PREOPERATIVE DIAGNOSIS: Acute cholecystitis. Cholelithiasis POSTOPERATIVE DIAGNOSIS: Same OPERATION: Laparoscopic cholecystectomy SURGEON: DON PANDA ANESTHESIA: GA TISSUE REMOVED OR ALTERED: Gallbladder COMPLICATIONS: None ESTIMATED BLOOD LOSS: 15 cc QUANTITATIVE BLOOD LOSS: 15 INTRAOPERATIVE FINDINGS: Acute cholecystitis PROCEDURE: After adequate general anesthesia patient was was placed in supine position and the abdomen prepped and draped in the usual sterile fashion. Appropriate timeout was then called. Next an infraumbilical incision made in the fascia identified and divided between Joanne clamps. Finger dissection was then performed of the peritoneal cavity and no evidence of adhesions noted. 2 sutures of 0 Vicryl were placed on each side of the Joanne clamps and the clamps were released. A Miner trocar was then inserted through the fascia to the abdominal cavity and CO2 insufflated to a pressure of 15 mmHg. 3 other trochars were placed under direct vision a 12 mm in the subxiphoid and two 5 mm in the right upper quadrant. Gallbladder was then identified noted to be slightly edematous and inflamed. The fundus was grasped and lifted over the liver. Cystic duct infundibular area was then grasped and the cystic duct dissected and cystic duct and artery were then identified. After this angle of safety was identified the cystic duct was then clipped 3 times proximally and one distally and divided between the distal clips. Cystic artery was then clipped and divided between the clip and the gallbladder with the use of harmonic luc. The gallbladder was then taken off the liver bed with the use of harmonic luc. Most of the gallbladder however was peeled off the liver. The gallbladder bed hemostasis was then controlled with the use of spatula cautery. Was irrigated and no active bleeding noted. A piece of Surgicel was placed in the liver bed since the gallbladder appears to be slightly intrahepatic. The gallbladder was then completely removed and placed in an Endobag and pulled out through the umbilical port. Miner trocar was then inserted back and the liver bed further inspected and no evidence of bleeding noted. All the irrigation was then suctioned out. The fascial defect was then closed with [id number] suture using 0 Vicryl and all the skin incisions closed with running subcuticular 4-0 Vicryl undyed. Marcaine was then injected over the fascia and over the incision sites. Steri-Strips placed over the incision sites. Patient tolerated procedure well. Needle instrument sponge count were all correct and estimated blood loss about 15 cc. Patient then brought to the PACU in satisfactory condition extubated.
[2019-05-04] MEDS: KETOROLAC TROMETHAMINE INJ/PF 30 MG/1 ML SDV IV SCH (20:13)
[2019-05-04] MEDS: NORMAL SALINE 1000 ML 1,000 ML IV PRN (20:22)
[2019-05-04] MEDS: OXYCODONE-ACETAMINOPHEN 5-325 MG TABLET PO PRN (23:40)
[2019-05-05] MEDS: KETOROLAC TROMETHAMINE INJ/PF 30 MG/1 ML SDV IV SCH ×2 (03:06→09:04)
[2019-05-05] MEDS: NORMAL SALINE 1000 ML 1,000 ML IV PRN (05:04)
[2019-05-05] MEDS: PIPERACILLIN SODIUM/TAZOBACTAM 3.375 GM in NORMAL SALINE 100 ML IV SCH ×2 (05:04→11:46)
[2019-05-05] MEDS: OXYCODONE-ACETAMINOPHEN 5-325 MG TABLET PO PRN (05:04)
--- NOTE | 2019-05-05 08:27 | PDOC DISCHARGE SUMMARY ---
General - Admit/Disc Date/PCP Admission Date/Primary Care Provider: 05/04/19 08:33 Discharge Date: 05/05/19 - Discharge Diagnosis Final Diagnosis: Acute cholecystitis Cholelithiasis - Assessment Summary: Is a 23-year-old female with abdominal pains the night prior to admission. She was then admitted on 05/04/2019 and later underwent laparoscopic cholecystectomy for acute cholecystitis and cholelithiasis. She had an ultrasound of the gallbladder which showed sludge in the gallbladder with possible kidney stones. Subsequent CT scan showed gallstones but kidney stones not identified. Patient never had any urinary symptoms or blood in the urine. Postoperatively she did very well tolerated regular diet on the day of discharge 05/15/2019. She was then given a prescription for Percocet x10 to take 1 every 6 hours as needed for pain. She will be scheduled for follow-up in the surgical clinic in 2 weeks - Additional Information Resuscitation Status: Full Code Discharge Diet: As Tolerated Discharge Activity: No Lifting Over 10 Pounds, No Lifting/Push/Pulling Referrals: BONITA LANTIGUA MD [ACTIVE STAFF] - 05/18/19 9:15 am (CALL THE OFFICE FOR ANY QUESTIONS OR CONCERNS.) Home Medications: Ibuprofen [Motrin 800 mg Tablet] 800 mg PO Q8HP PRN 05/04/19 History of Present Illiness History of Present Illness: TONI BRIONES is a 23 year old female who has been complaining of off and on right upper quadrant pains usually at night. Last night she woke up with severe pains in the right upper quadrant with nausea and went to ED. She had an ultrasound of the gallbladder which showed sludge and right kidney stones. Subsequent CT scan of the abdomen revealed gallstones but no pericholecystic findings. Her white count is normal and her LFTs and lipase are all normal. She just had morphine in the ED but is still has some mild pains and tenderness in the right upper quadrant. Denies any fever no chills nor vomiting. She is not sure if she has fatty food intolerance since she tries to avoid fatty foods. She did have some spaghetti with sauce for dinner last night. Hospital Course Hospital Course: Underwent laparoscopic cholecystectomy for acute acute cholecystitis with cholelithiasis on 05/04/2019. Postoperatively she did very well and tolerated regular diet and 05/05/2019. She is discharged to 05/05/2019 given a prescription for Percocet 1 every 6 hours as needed for pain x10. Arrangement for surgical follow-up in 2 weeks Physical Exam Vital Signs: Temp Pulse Resp BP Pulse Ox 98.2 F 94 16 101/53 L 99 05/05/19 07:11 05/05/19 07:11 05/05/19 07:11 05/05/19 07:11 05/05/19 07:11 Intake & Output 05/04/19 05/05/19 05/06/19 06:59 06:59 06:59 Intake Total 1000 2200 Output Total 350 Balance 1000 1850 Weight 66.7 kg 67.2 kg Exam: As preoperative tenderness in the right upper quadrant Results Laboratory Results: WBC 8.6 10^3/uL (4.0-10.5) 05/04/19 03:00 RBC 4.53 10^6/uL (3.72-5.28) 05/04/19 03:00 Hgb 13.6 g/dL (12.0-15.5) 05/04/19 03:00 Hct 39.3 % (36.0-47.0) 05/04/19 03:00 MCV 87 fl (80-97) 05/04/19 03:00 MCH 30.1 pg (27.0-33.4) 05/04/19 03:00 MCHC 34.7 g/dL (32.0-36.0) 05/04/19 03:00 RDW 13.2 % (11.5-14.0) 05/04/19 03:00 Plt Count 181 10^3/uL (150-450) 05/04/19 03:00 Lymph % (Auto) 34.3 % (13-45) 05/04/19 03:00 Norton % (Auto) 6.0 % (3-13) 05/04/19 03:00 Eos % (Auto) 1.8 % (0-6) 05/04/19 03:00 Baso % (Auto) 0.4 % (0-2) 05/04/19 03:00 Absolute Neuts (auto) 4.9 10^3/uL (1.7-8.2) 05/04/19 03:00 Absolute Lymphs (auto) 2.9 10^3/uL (0.5-4.7) 05/04/19 03:00 Absolute Monos (auto) 0.5 10^3/uL (0.1-1.4) 05/04/19 03:00 Absolute Eos (auto) 0.2 10^3/uL (0.0-0.6) 05/04/19 03:00 Absolute Basos (auto) 0.0 10^3/uL (0.0-0.2) 05/04/19 03:00 Seg Neutrophils % 57.5 % (42-78) 05/04/19 03:00 Sodium 139.6 mmol/L (137-145) 05/04/19 03:00 Potassium 4.2 mmol/L (3.6-5.0) 05/04/19 03:00 Chloride 105 mmol/L (98-107) 05/04/19 03:00 Carbon Dioxide 25 mmol/L (22-30) 05/04/19 03:00 Anion Gap 10 (5-19) 05/04/19 03:00 BUN 19 mg/dL (7-20) 05/04/19 03:00 Creatinine 0.95 mg/dL (0.52-1.25) 05/04/19 03:00 Est GFR ( Amer) > 60 (>60) 05/04/19 03:00 Est GFR (MDRD) Non-Af > 60 (>60) 05/04/19 03:00 Glucose 82 mg/dL (75-110) 05/04/19 03:00 Calcium 10.0 mg/dL (8.4-10.2) 05/04/19 03:00 Total Bilirubin 0.4 mg/dL (0.2-1.3) 05/04/19 03:00 Direct Bilirubin 0.1 mg/dL (0.0-0.4) 05/04/19 03:00 Neonat Total Bilirubin Not Reportable 05/04/19 03:00 Neonat Direct Bilirubin Not Reportable 05/04/19 03:00 Neonat Indirect Bili Not Reportable 05/04/19 03:00 AST 18 U/L (14-36) 05/04/19 03:00 ALT 15 U/L (<35) 05/04/19 03:00 Alkaline Phosphatase 68 U/L (38-126) 05/04/19 03:00 Total Protein 7.6 g/dL (6.3-8.2) 05/04/19 03:00 Albumin 4.6 g/dL (3.5-5.0) 05/04/19 03:00 Lipase 144.2 U/L (23-300) 05/04/19 03:00 Urine Color YELLOW 05/04/19 02:47 Urine Appearance SLIGHTLY-CLOUDY 05/04/19 02:47 Urine pH 7.0 (5.0-9.0) 05/04/19 02:47 Ur Specific White 1.014 05/04/19 02:47 Urine Protein NEGATIVE mg/dL (NEGATIVE) 05/04/19 02:47 Urine Glucose (UA) NEGATIVE mg/dL (NEGATIVE) 05/04/19 02:47 Urine Ketones NEGATIVE mg/dL (NEGATIVE) 05/04/19 02:47 Urine Blood NEGATIVE (NEGATIVE) 05/04/19 02:47 Urine Nitrite NEGATIVE (NEGATIVE) 05/04/19 02:47 Urine Bilirubin NEGATIVE (NEGATIVE) 05/04/19 02:47 Urine Urobilinogen NEGATIVE mg/dL (<2.0) 05/04/19 02:47 Ur Leukocyte Esterase MODERATE (NEGATIVE) H 05/04/19 02:47 Urine WBC (Auto) 5 /HPF 05/04/19 02:47 Urine RBC (Auto) 1 /HPF 05/04/19 02:47 Urine Bacteria (Auto) TRACE /HPF 05/04/19 02:47 Squamous Epi Cells Auto 3 /HPF 05/04/19 02:47 Urine Mucus (Auto) RARE /LPF 05/04/19 02:47 Urine Ascorbic Acid NEGATIVE (NEGATIVE) 05/04/19 02:47 Urine HCG, Qual NEGATIVE (NEGATIVE) 05/04/19 02:47 Blood Type AB NEGATIVE 05/04/19 13:00 Antibody Screen NEGATIVE 05/04/19 13:00 Impressions: Abdomen Ultrasound 05/04/19 03:27 IMPRESSION: Gallbladder sludge with cholelithiasis with no evidence of acute cholecystitis. Mild right-sided hydronephrosis with multiple stones noted. copyright 2010 [employer]- All Rights Reserved Abdomen/Pelvis CT 05/04/19 06:26 IMPRESSION: Distended porcelain gallbladder containing multiple stones. No definite pericholecystic inflammatory changes or pericholecystic fluid. No evidence of urolithiasis or hydronephrosis. TECHNICAL DOCUMENTATION: Quality ID # 436: Final reports with documentation of one or more dose reduction techniques (e.g., Automated exposure control, adjustment of the mA and/or kV according to patient size, use of iterative reconstruction technique) copyright 2011 [employer]- All Rights Reserved Plan Health Concerns: There is an incidental finding of right kidney stones on ultrasound of the gallbladder area. Patient however without any symptoms of hematuria or any urinary symptoms. Plan of Treatment: And laparoscopic cholecystectomy on 05/04/2019 Time Spent: Less than 30 Minutes
[2019-05-05 08:53] VITALS: BP 135/80
== END 2019-05-05 11:30 | disposition home or self-care (01) ==
LOC: ER 00:25 → INTOOBSV 08:33 → EH 08:33 → 2N 11:30
PROVIDERS: ADMIT Surgery; ATTEND Surgery
PROC: 0FT44ZZ Resection of Gallbladder, Percutaneous Endoscopic Approach (ICD-10-PCS; principal; 2019-05-04 13:30)
DX: K80.10 Calculus of gallbladder with chronic cholecystitis without obstruction (principal); N20.0 Calculus of kidney; N13.39 Other hydronephrosis; Z83.79 Family history of other diseases of the digestive system
CPT/HCPCS: 99285; 96361; 96375; 96365; 86900; 86901; 36415; 87040; 87086; 86850; 83690; 85025; 81025; 87088; 80053; 81001; 88304 ×2; 76700; 74176; 00790; 47562; G0378 ×3; J2250; J3490 ×3; J1885 ×3; J3010; J2270; J2710; J2405; J7121; J7050 ×2; J7030 ×2; J2704; J2543 ×2; 790

== ENCOUNTER 2019-05-24 20:55 | Emergency (ER) | payer OTHER ==
--- NOTE | 2019-05-24 21:44 | ER Document Report ---
ED Medical Screen (RME) - General Stated Complaint: VAGINAL BLEEDING Time Seen by Provider: 05/24/19 21:42 Mode of Arrival: Ambulatory Information source: Patient Notes: Patient states that she is 5 weeks G2, P1. Patient states that she started to have vaginal bleeding yesterday. Patient denies any pelvic tenderness. I have greeted and performed a rapid initial assessment of this patient. A comprehensive ED assessment and evaluation of the patient, analysis of test results and completion of the medical decision making process will be conducted by additional ED providers. TRAVEL OUTSIDE OF THE [place] IN LAST 30 DAYS: No - Related Data Allergies/Adverse Reactions: Sulfa (Sulfonamide Antibiotics) Allergy (Verified 03/05/18 00:42) Past Medical History - Past Medical History Cardiac Medical History: Denies: Hx Congestive Heart Failure, Hx Heart Attack, Hx Hypertension Pulmonary Medical History: Denies: Hx Asthma, Hx Bronchitis, Hx COPD, Hx Pneumonia, Hx Tuberculosis Neurological Medical History: Denies: Hx Seizures, Hx Parkinson's Disease Renal/ Medical History: Denies: Hx End Stage Renal Disease, Hx Kidney Stones, Hx Peritoneal Dialysis GI Medical History: Denies: Hx Cirrhosis, Hx Gastroesophageal Reflux Disease, Hx Ulcer Musculoskeltal Medical History: Denies Hx Arthritis, Denies Hx Multiple Sclerosis Psychiatric Medical History: Denies: Hx Bipolar Disorder, Hx Depression, Hx Schizophrenia Physical Exam - Vital signs Vitals: Temp Pulse Resp BP Pulse Ox 98.2 F 73 18 138/87 H 100 05/24/19 21:14 05/24/19 21:14 05/24/19 21:14 05/24/19 21:14 05/24/19 21:14 - General General appearance: Appears well, Alert In distress: None Course - Vital Signs Vital signs: Temp Pulse Resp BP Pulse Ox 98.2 F 73 18 138/87 H 100 05/24/19 21:14 05/24/19 21:14 05/24/19 21:14 05/24/19 21:14 05/24/19 21:14
[2019-05-24 22:33] LABS: ABSOLUTE EOSINOPHILS # (AUTO) 0.2 10^3/uL (0.0-0.6); ABSOLUTE MONOCYTES (AUTO) 0.5 10^3/uL (0.1-1.4); ABSOLUTE NEUT (AUTO) 3.7 10^3/uL (1.7-8.2); BASOPHILS % (AUTO) 0.5 % (0-2); EOSINOPHILS % (AUTO) 1.9 % (0-6); HEMATOCRIT 39.5 % (36.0-47.0); HEMOGLOBIN 13.6 g/dL (12.0-15.5); LYMPHOCYTES % (AUTO) 47.5 % (13-45); MEAN CORPUSCULAR HEMOGLOBIN 30.1 pg (27.0-33.4); MEAN CORPUSCULAR HGB CONC 34.4 g/dL (32.0-36.0); MEAN CORPUSCULAR VOLUME 88 fl (80-97); MONOCYTES % (AUTO) 6.1 % (3-13); PLATELET COUNT 222 10^3/uL (150-450); RED BLOOD COUNT 4.51 10^6/uL (3.72-5.28); RED CELL DISTRIBUTION WIDTH 12.7 % (11.5-14.0); TOTAL CELLS COUNTED % (AUTO) 100 %; WHITE BLOOD COUNT 8.5 10^3/uL (4.0-10.5)
[2019-05-24 22:39] LABS: APPEARANCE,URINE SLIGHTLY-CLOUDY; BILIRUBIN,URINE NEGATIVE (NEGATIVE); COLOR,URINE YELLOW; GLUCOSE, URINE NEGATIVE (NEGATIVE); KETONES,URINE NEGATIVE (NEGATIVE); PROTEIN,URINE NEGATIVE (NEGATIVE); URINE SPECIFIC GRAVITY 1.025; UROBILINOGEN,URINE NEGATIVE mg/dL (<2.0)
--- NOTE | 2019-05-25 00:22 | ER Document Report ---
ED General - General Chief Complaint: Vaginal Bleeding Stated Complaint: VAGINAL BLEEDING Time Seen by Provider: 05/24/19 21:42 Mode of Arrival: Ambulatory Information source: Patient, [facility] Records Notes: 23-year-old female G2, P1 at approximately 5 weeks and 4 days per last menstrual. Which she reports was April 16, 2019 presents with vaginal bleeding that started 24 hours prior to arrival. Patient denies any abdominal pain, cramping. She was seen by her HOUSE CALLS NURSE PRACTITIONER this morning where blood work was drawn and patient was rescheduled for repeat evaluation on May 26. Patient has had some mild nausea without vomiting. She reports a normal first that went to term. Patient reports scant bleeding, no clots or passage of tissue. TRAVEL OUTSIDE OF THE [place] IN LAST 30 DAYS: No - HPI Onset: Yesterday Onset/Duration: Gradual, Persistent Quality of pain: No pain Severity: None Pain Level: Denies Associated symptoms: Nausea. denies: Chest pain, Chills, Nonproductive cough, Fever, Vomiting, Shortness of breath Exacerbated by: Denies Relieved by: Denies Similar symptoms previously: Yes Recently seen / treated by doctor: Yes - Related Data Allergies/Adverse Reactions: Sulfa (Sulfonamide Antibiotics) Allergy (Verified 03/05/18 00:42) Past Medical History - General Information source: Patient - Social History Smoking Status: Never Smoker Frequency of alcohol use: None Drug Abuse: None Lives with: Family, Spouse/Significant other Family History: Reviewed & Not Pertinent Patient has suicidal ideation: No Patient has homicidal ideation: No - Medical History Medical History: Negative - Past Medical History Cardiac Medical History: Denies: Hx Congestive Heart Failure, Hx Heart Attack, Hx Hypertension Pulmonary Medical History: Denies: Hx Asthma, Hx Bronchitis, Hx COPD, Hx Pneumonia, Hx Tuberculosis Neurological Medical History: Denies: Hx Seizures, Hx Parkinson's Disease Renal/ Medical History: Denies: Hx End Stage Renal Disease, Hx Kidney Stones, Hx Peritoneal Dialysis GI Medical History: Denies: Hx Cirrhosis, Hx Gastroesophageal Reflux Disease, Hx Ulcer Musculoskeletal Medical History: Denies Hx Arthritis, Denies Hx Multiple Sclerosis Psychiatric Medical History: Denies: Hx Bipolar Disorder, Hx Depression, Hx Schizophrenia Review of Systems - Review of Systems Notes: REVIEW OF SYSTEMS: CONSTITUTIONAL : Denies fever, chills, or sweats. Denies recent illness. Denies weight loss, recent hospitalizations. EENT: Denies visual changes, eye pain. Denies sore throat, oral lesions, difficulty swallowing. CARDIOVASCULAR: Denies chest pain. Denies palpitations. Denies lower extremity edema. RESPIRATORY: Denies cough. Denies shortness of breath, wheezing. GASTROINTESTINAL: Denies abdominal pain or distention. Denies nausea, vomiting, or diarrhea. Denies blood in vomitus, stools, or per rectum. Denies black, tarry stools. Denies constipation. GENITOURINARY: Denies difficulty urinating, painful urination, frequency, blood in urine, or vaginal discharge. MUSCULOSKELETAL: Denies back or neck pain or stiffness. Denies joint pain or swelling. SKIN: Denies rash, lesions or sores. HEMATOLOGIC : Denies easy bruising or bleeding. LYMPHATIC: Denies swollen glands. NEUROLOGICAL: Denies confusion or altered mental status. Denies loss of consciousness. Denies dizziness or lightheadedness. Denies headache. Denies weakness or paralysis. Denies problems difficulty with ambulation, slurred speech. Denies sensory loss, numbness, or tingling. Denies seizures. PSYCHIATRIC: Denies anxiety or stress. Denies depression, suicidal ideation, or homicidal ideation. Denies visual or auditory hallucinations. Physical Exam - Vital signs Vitals: Temp Pulse Resp BP Pulse Ox 98.2 F 73 18 138/87 H 100 05/24/19 21:14 05/24/19 21:14 05/24/19 21:14 05/24/19 21:14 05/24/19 21:14 - Notes Notes: PHYSICAL EXAMINATION: GENERAL: Well-appearing, well-nourished and in no acute distress. HEAD: Atraumatic, normocephalic. EYES: Pupils equal round and reactive to light, extraocular movements intact, conjunctiva are normal. ENT: Nares patent, oropharynx clear without exudates. Moist mucous membranes. NECK: Normal range of motion, supple without lymphadenopathy LUNGS: Breath sounds clear to auscultation bilaterally and equal. No wheezes rales or rhonchi. HEART: Regular rate and rhythm without murmurs ABDOMEN: Soft, nontender, nondistended abdomen. No guarding, no rebound. No masses appreciated. Female : Pelvic exam; External genitalia unremarkable. Speculum exam with mild bleeding. Vaginal wall unremarkable. Os closed. No cervical motion tenderness. No adnexal tenderness or masses appreciated. Musculoskeletal: Normal range of motion, no pitting or edema. No cyanosis. NEUROLOGICAL: Cranial nerves grossly intact. Normal speech, normal gait. Normal sensory, motor exams PSYCH: Normal mood, normal affect. SKIN: Warm, Dry, normal turgor, no rashes or lesions noted. Course - Re-evaluation Re-evalutation: 05/25/19 00:21 Laboratory 05/24/19 05/24/19 05/24/19 22:12 22:12 22:12 WBC 8.5 RBC 4.51 Hgb 13.6 Hct 39.5 MCV 88 MCH 30.1 MCHC 34.4 RDW 12.7 Plt Count 222 Lymph % (Auto) 47.5 H [place] % (Auto) 6.1 Eos % (Auto) 1.9 Baso % (Auto) 0.5 Absolute Neuts (auto) 3.7 Absolute Lymphs (auto) 4.0 Absolute Monos (auto) 0.5 Absolute Eos (auto) 0.2 Absolute Basos (auto) 0.0 Seg Neutrophils % 44.0 Beta HCG, Quant 417.37 H Total Beta HCG POSITIVE Urine Color Urine Appearance Urine pH Ur Specific [place] Urine Protein Urine Glucose (UA) Urine Ketones Urine Blood Urine Nitrite (Reflex) Urine Bilirubin Urine Urobilinogen Leukocyte Esterase Rfl Urine RBC (Auto) U Hyaline Cast (Auto) Urine WBC (Reflex) Urine Mucus (Auto) Urine Ascorbic Acid Blood Type AB NEGATIVE Antibody Screen NEGATIVE Rhogam Indicated RHOGAM REQUESTED 05/24/19 22:12 WBC RBC Hgb Hct MCV MCH MCHC RDW Plt Count Lymph % (Auto) [place] % (Auto) Eos % (Auto) Baso % (Auto) Absolute Neuts (auto) Absolute Lymphs (auto) Absolute Monos (auto) Absolute Eos (auto) Absolute Basos (auto) Seg Neutrophils % Beta HCG, Quant Total Beta HCG Urine Color YELLOW Urine Appearance SLIGHTLY-CLOUDY Urine pH 6.0 Ur Specific [place] 1.025 Urine Protein NEGATIVE Urine Glucose (UA) NEGATIVE Urine Ketones NEGATIVE Urine Blood SMALL H Urine Nitrite (Reflex) NEGATIVE Urine Bilirubin NEGATIVE Urine Urobilinogen NEGATIVE Leukocyte Esterase Rfl NEGATIVE Urine RBC (Auto) 11 U Hyaline Cast (Auto) 1 Urine WBC (Reflex) 1 Urine Mucus (Auto) FEW Urine Ascorbic Acid NEGATIVE Blood Type Antibody Screen Rhogam Indicated Temp Pulse Resp BP Pulse Ox 98.2 F 73 18 138/87 H 100 05/24/19 21:14 05/24/19 21:14 05/24/19 21:14 05/24/19 21:14 05/24/19 21:14 05/25/19 00:39 Obstetrics Ultrasound 05/24/19 21:43 IMPRESSION: No visualized intrauterine gestational sac at this time. Close obstetric follow-up recommended. Correlate with beta hCG levels copyright 2010 [employer]- All Rights Reserved 05/25/19 00:46 23-year-old female G2, P1 at approximately 5 weeks gestation per last menstrual period presents with vaginal bleeding. Vital signs reviewed and within normal limits. Patient does not appear toxic or dehydrated. She is in no acute distress. Previous medical records and nursing notes reviewed. Patient has a b enign abdominal exam. Beta quant is only 400. Transvaginal ultrasound shows no IUP. Patient does have an upcoming appointment on the with OB for repeat ultrasound and hormone level. Patient was provided copies of her ultrasound that was performed today as well as her blood work. Encouraged to return if she experiences pain or worsening bleeding. Patient did receive RhoGam in the emergency department. Patient was evaluated and treated as appropriate for the patient's presenting symptoms and complaint, with consideration of any critical or life threatening conditions that may be associated with their obtained history and exam as noted above. All results were discussed with patient and her who is at the bedside patient provided the opportunity to ask questions, and express concerns. Patient was educated on treatments based on their presumed diagnosis as noted above. At this time we will discharge the patient with return precautions and follow-up recommendations. Verbal discharge instructions given a the bedside. Medication warnings reviewed. Patient is in agreement with this plan and has verbalized understanding of return precautions. After careful consideration I feel that that patient can be safely discharged from the emergency department, they were advised to followup with a primary care physician in 2-3 days. Dictation on this chart was performed using voice recognition software and may result in unintended grammatical, spelling, syntax or errors. - Vital Signs Vital signs: Temp Pulse Resp BP Pulse Ox 98.2 F 73 18 138/87 H 100 05/24/19 21:14 05/24/19 21:14 05/24/19 21:14 05/24/19 21:14 05/24/19 21:14 - Laboratory Result Diagrams: 05/24/19 22:12 Laboratory results interpreted by me: 05/24/19 05/24/19 05/24/19 22:12 22:12 22:12 Lymph % (Auto) 47.5 H Beta HCG, Quant 417.37 H Urine Blood SMALL H - Diagnostic Test Radiology reviewed: Image reviewed, Reports reviewed Discharge - Discharge Clinical Impression: Vaginal bleeding during Condition: Good Disposition: HOME, SELF-CARE Instructions: Threatened Miscarriage ([facility]), Bleeding During Early ([facility]) Additional Instructions: Please follow-up with your HOUSE CALLS NURSE PRACTITIONER on Friday as already scheduled. Please return to the emergency department if you experience abdominal pain, increased vaginal bleeding. Forms: Elevated Blood Pressure Referrals: BIANCA SEARS MD [Primary Care Provider] - Follow up as needed ILAN MONACO MD [ACTIVE STAFF] - 05/26/19
--- NOTE | 2019-05-25 00:27 | RADIOLOGY REPORT (SQ) ---
EXAM DESCRIPTION: US TRANSVAGINAL COMPLETED DATE/TME: 05/24/2019 21:43 CLINICAL HISTORY: 23 years, Female, vag bleeding COMPARISON: CT 05/04/2019 TECHNIQUE: Emergent ultrasound LIMITATIONS: None. FINDINGS: The uterus measures 9.3 x 4.2 x 3.4 cm. There is no visible intrauterine gestational sac. The right ovary measures 3.2 x 1.6 x 1.8 cm, the left 2.6 x 1.3 x 1.4 cm. Normal flow to each ovary. No adnexal cyst or mass. No free fluid. IMPRESSION: No visualized intrauterine gestational sac at this time. Close obstetric follow-up recommended. Correlate with beta hCG levels copyright 2010 [employer]- All Rights Reserved
[2019-05-25 00:47] VITALS: BP 143/92
== END 2019-05-25 01:10 | disposition home or self-care (01) ==
LOC: ER 20:55
DX: O20.9 Hemorrhage in early pregnancy, unspecified (principal); O26.891 Other specified pregnancy related conditions, first trimester; R11.0 Nausea; Z3A.01 Less than 8 weeks gestation of pregnancy; Z88.2 Allergy status to sulfonamides
CPT/HCPCS: 99284; 86900; 86901; 36415; 86850; 84702; 85025; 81001; 76817; J2790

== ENCOUNTER 2019-06-13 16:43 | Emergency (ER) | payer OTHER ==
--- NOTE | 2019-06-13 17:09 | ER Document Report ---
ED Medical Screen (RME) - General Chief Complaint: Post Surgical Pain Stated Complaint: PAIN, REDNESS/POST GALLBLADDER SURGERY Time Seen by Provider: 06/13/19 17:04 Primary Care Provider: BIANCA SEARS MD [Primary Care Provider] - Follow up as needed Mode of Arrival: Ambulatory Information source: Patient Notes: 23-year-old female presents emergency department with pain around her umbilicus area. Reports she had a lap owen done here at [place] approximately 6 weeks ago. Approximately 1 week ago she noticed a stitch coming out which she did pull the stitch. She reports now the area is very super tender. With some erythema denies fever vomiting diarrhea. Reports miscarriage 2 weeks ago. I have greeted and performed a rapid initial assessment of this patient. A comprehensive ED assessment and evaluation of the patient, analysis of test results and completion of the medical decision making process will be conducted by additional ED providers. Dictation of this chart was performed using voice recognition software; therefore, there may be some unintended grammatical errors. TRAVEL OUTSIDE OF THE [place] IN LAST 30 DAYS: No - Related Data Allergies/Adverse Reactions: Sulfa (Sulfonamide Antibiotics) Allergy (Verified 06/13/19 17:04) Past Medical History - Social History Chew tobacco use (# tins/day): No Frequency of alcohol use: None Drug Abuse: None - Past Medical History Cardiac Medical History: Denies: Hx Congestive Heart Failure, Hx Heart Attack, Hx Hypertension Pulmonary Medical History: Denies: Hx Asthma, Hx Bronchitis, Hx COPD, Hx Pneumonia, Hx Tuberculosis Neurological Medical History: Denies: Hx Seizures, Hx Parkinson's Disease Renal/ Medical History: Denies: Hx End Stage Renal Disease, Hx Kidney Stones, Hx Peritoneal Dialysis GI Medical History: Denies: Hx Cirrhosis, Hx Gastroesophageal Reflux Disease, Hx Ulcer Musculoskeltal Medical History: Denies Hx Arthritis, Denies Hx Multiple Sclerosis Psychiatric Medical History: Denies: Hx Bipolar Disorder, Hx Depression, Hx Schizophrenia Physical Exam - Vital signs Vitals: Temp Pulse Resp BP Pulse Ox 98.7 F 73 18 127/68 H 100 06/13/19 16:49 06/13/19 16:49 06/13/19 16:49 06/13/19 16:49 06/13/19 16:49 Course - Vital Signs Vital signs: Temp Pulse Resp BP Pulse Ox 98.7 F 73 18 127/68 H 100 06/13/19 17:04 06/13/19 17:04 06/13/19 17:04 06/13/19 17:04 06/13/19 17:04 Doctor's Discharge - Discharge Referrals: BIANCA SEARS MD [Primary Care Provider] - Follow up as needed
--- NOTE | 2019-06-13 18:00 | RADIOLOGY REPORT (SQ) ---
EXAM DESCRIPTION: U/S ABDOMEN LIMITED W/O DOP COMPLETED DATE/TIME: 06/13/2019 5:31 pm REASON FOR STUDY: recent owen, pain around umbilicus COMPARISON: 05/04/2019 TECHNIQUE: Dynamic and static grayscale images acquired of the localized site of clinical concern an d recorded on PACS. Additional selected color Doppler and spectral images recorded. SITE OF CONCERN: Paraumbilical LIMITATIONS: None. FINDINGS: 2 cm area of heterogeneous echotexture in the region of the umbilicus with some internal v ascularity, possible granulation tissue versus fat containing hernia. OTHER: No other significant finding. IMPRESSION: 2 cm area of heterogeneous echotexture in the region of the umbilicus with some internal vascularity, possible granulation tissue versus fat containing hernia. TECHNICAL DOCUMENTATION: JOB ID: [id number] [place]-72 2010 [employer]- All Rights Reserved Reading location - IP/workstation name: [email or web address]
[2019-06-13 18:52] LABS: ABSOLUTE BASOPHILS # (AUTO) 0.1 10^3/uL (0.0-0.2); ABSOLUTE EOSINOPHILS # (AUTO) 0.1 10^3/uL (0.0-0.6); ABSOLUTE LYMPHOCYTES (AUTO) 3.6 10^3/uL (0.5-4.7); ABSOLUTE MONOCYTES (AUTO) 0.5 10^3/uL (0.1-1.4); ABSOLUTE NEUT (AUTO) 3.7 10^3/uL (1.7-8.2); BASOPHILS % (AUTO) 0.8 % (0-2); EOSINOPHILS % (AUTO) 1.8 % (0-6); HEMATOCRIT 39.5 % (36.0-47.0); HEMOGLOBIN 13.9 g/dL (12.0-15.5); LYMPHOCYTES % (AUTO) 45.3 % (13-45); MEAN CORPUSCULAR HEMOGLOBIN 30.5 pg (27.0-33.4); MEAN CORPUSCULAR HGB CONC 35.2 g/dL (32.0-36.0); MEAN CORPUSCULAR VOLUME 87 fl (80-97); MONOCYTES % (AUTO) 5.9 % (3-13); PLATELET COUNT 174 10^3/uL (150-450); RED BLOOD COUNT 4.56 10^6/uL (3.72-5.28); RED CELL DISTRIBUTION WIDTH 12.7 % (11.5-14.0); SEGMENTED NEUTROPHILS % (AUTO) 46.2 % (42-78); TOTAL CELLS COUNTED % (AUTO) 100 %
[2019-06-13 18:59] LABS: APPEARANCE,URINE CLEAR; BILIRUBIN,URINE NEGATIVE (NEGATIVE); COLOR,URINE YELLOW; GLUCOSE, URINE NEGATIVE (NEGATIVE); KETONES,URINE NEGATIVE (NEGATIVE); LEUKOCYTE ESTERASE,URINE NEGATIVE (NEGATIVE); NITRITE,URINE NEGATIVE (NEGATIVE); PROTEIN,URINE NEGATIVE (NEGATIVE); URINE SPECIFIC GRAVITY 1.024; UROBILINOGEN,URINE NEGATIVE mg/dL (<2.0)
[2019-06-13 19:55] LABS: ALBUMIN 4.7 g/dL (3.5-5.0); ALKALINE PHOSPHATASE 56 U/L (38-126); ANION GAP 11 (5-19); ASPARTATE AMINO TRANSFERASE 20 U/L (14-36); BILIRUBIN,DIRECT 0.1 mg/dL (0.0-0.4); BILIRUBIN,TOTAL 0.3 mg/dL (0.2-1.3); BLOOD UREA NITROGEN 21 mg/dL (7-20); CALCIUM 9.7 mg/dL (8.4-10.2); CARBON DIOXIDE 26 mmol/L (22-30); CHLORIDE 106 mmol/L (98-107); GLUCOSE 84 mg/dL (75-110); POTASSIUM 4.2 mmol/L (3.6-5.0); TOTAL PROTEIN 7.7 g/dL (6.3-8.2)
--- NOTE | 2019-06-13 20:57 | ER Document Report ---
ED General - General Chief Complaint: Post Surgical Pain Stated Complaint: PAIN, REDNESS/POST GALLBLADDER SURGERY Time Seen by Provider: 06/13/19 17:04 Primary Care Provider: BIANCA SEARS MD [Primary Care Provider] - Follow up as needed DON PANDA MD [ACTIVE STAFF] - Follow up in 3-5 days (Follow-up in the surgery) Mode of Arrival: Ambulatory TRAVEL OUTSIDE OF THE [place] IN LAST 30 DAYS: No - Related Data Allergies/Adverse Reactions: Sulfa (Sulfonamide Antibiotics) Allergy (Verified 06/13/19 17:04) Past Medical History - General Information source: Patient - Social History Smoking Status: Never Smoker Chew tobacco use (# tins/day): No Frequency of alcohol use: None Drug Abuse: None Family History: Reviewed & Not Pertinent Patient has suicidal ideation: No Patient has homicidal ideation: No - Past Medical History Cardiac Medical History: Denies: Hx Congestive Heart Failure, Hx Heart Attack, Hx Hypertension Pulmonary Medical History: Denies: Hx Asthma, Hx Bronchitis, Hx COPD, Hx Pneumonia, Hx Tuberculosis Neurological Medical History: Denies: Hx Seizures, Hx Parkinson's Disease Renal/ Medical History: Denies: Hx End Stage Renal Disease, Hx Kidney Stones, Hx Peritoneal Dialysis GI Medical History: Denies: Hx Cirrhosis, Hx Gastroesophageal Reflux Disease, Hx Ulcer Musculoskeletal Medical History: Denies Hx Arthritis, Denies Hx Multiple Sclerosis Psychiatric Medical History: Denies: Hx Bipolar Disorder, Hx Depression, Hx Schizophrenia Physical Exam - Vital signs Vitals: Temp Pulse Resp BP Pulse Ox 98.7 F 73 18 127/68 H 100 06/13/19 16:49 06/13/19 16:49 06/13/19 16:49 06/13/19 16:49 06/13/19 16:49 - Notes Notes: Patient presents emergency department complaining pain in her umbilicus for the past 4 days. She had a little bit of redness and a small fluctuant area that she popped and drained 1 to 2 cc of slightly purulent material. Since that time the redness is improved but she still has some tenderness in the area. She juana es any nausea or vomiting no fevers or urinary symptoms appetite has been good. There is not any trauma falls or heavy lifting She is status post lap owen 6 weeks ago had a follow-up visit 2 weeks later and was doing well Past history is unremarkable Social history she does not smoke rare alcohol her LMP is unknown she had a miscarriage the beginning of May and had no bleeding Review of systems pertinent positives and negatives in HPI otherwise all the systems were reviewed and acutely negative PHYSICIAN EXAM -vital signs are noted triage note and note from triage reviewed GENERAL: Well-appearing, well-nourished and in ___no acute distress___ HEAD: Atraumatic, normocephalic. EYES: Pupils equal round and reactive to light, extraocular movements intact, sclera anicteric, conjunctiva are normal. ENT: nares patent, oropharynx clear without exudates. Moist mucous membranes. NECK: supple without lymphadenopathy LUNGS: Breath sounds clear to auscultation bilaterally and equal. No wheezes rales or rhonchi. HEART: Regular rate and rhythm without murmurs ABDOMEN: Soft, she has several well-healing laparoscopic scars. One scar just inferior to the umbilicus which is clean and dry and healing well. Small minimally fluctuant area inside the umbilicus that is the size of a pen tip I do not appreciate any redness or drainage from the area. A Q-tip was placed in the umbilicus with no drainage. I do not appreciate a hernia do not see a stitch present. Then gently probed the wound with Q-tips and the wound would not open up and see any suture EXTREMITIES:, no edema. NEUROLOGICAL: No focal neurological deficits. Moves all extremities spontaneously and on command. PSYCH: Normal mood, normal affect. SKIN: Warm, Dry, normal BACK-nontender in the midline Stitch abscess skin hematoma Course - Re-evaluation Re-evalutation: 06/13/19 21:15 Medical decision making patient is status post lap owen presents with a some redness around the umbilicus. That she probably had a small subcutaneous hematoma. Any redness now or drainage at all I cannot find a stitch. Patient looks well exam is unremarkable she looks well can be discharged home. Plan at this point will treat her with antibiotics along with general surgery next week positive most of the sutures are absorbable and should resolve without difficulty Dictation was done using voice recognition software. There may be some grammatical errors which are unintentional I discussed results of laboratory findings and diagnostic test with patient/family. The treatment plan was explained and I reviewed the discharge instructions with them. Questions were answered. The patient/family verbalizes understanding - Vital Signs Vital signs: Temp Pulse Resp BP Pulse Ox 98.7 F 73 18 127/68 H 100 06/13/19 17:04 06/13/19 17:04 06/13/19 17:04 06/13/19 17:04 06/13/19 17:04 - Laboratory Result Diagrams: 06/13/19 18:15 06/13/19 18:15 Laboratory results interpreted by me: 06/13/19 06/13/19 18:15 18:15 Lymph % (Auto) 45.3 H BUN 21 H Discharge - Discharge Clinical Impression: Postoperative complication Qualifiers: Surgical complication system/body Area: subcutaneous tissue Surgical complication type: hematoma Condition: Good Disposition: HOME, SELF-CARE Admitting Provider: thanh Additional Instructions: Please review the discharge instructions, they will tell you about your disease/injury and what you need to return to the ED for Return to the ED if you feel worse or can follow-up with your family doctor Follow-up in the surgery clinic in 3 to 5 days Return if you develop fever greater than 101 if the redness spreads around your bellybutton or you have continuous drainage Prescriptions: Cephalexin Monohydrate [Keflex 500 mg Capsule] 500 mg PO TID 5 Days #15 capsule Referrals: BIANCA SEARS MD [Primary Care Provider] - Follow up as needed DON PANDA MD [ACTIVE STAFF] - Follow up in 3-5 days (Follow-up in the surgery)
[2019-06-13] MEDS ORDERED: CEPHALEXIN 500 MG CAPSULE PO ONE (21:22)
[2019-06-13 22:37] VITALS: BP 123/82
== END 2019-06-13 22:39 | disposition home or self-care (01) ==
LOC: ER 16:43
DX: L76.82 Other postprocedural complications of skin and subcutaneous tissue (principal); G89.18 Other acute postprocedural pain; Z90.49 Acquired absence of other specified parts of digestive tract
CPT/HCPCS: 36415; 76705; 80053; 81001; 81025; 85025; 99284